=== PATIENT | female | born 1965 | race Caucasian/White ===

== ENCOUNTER 2016-07-20 20:28 | Emergency (ER) | payer MEDICAID ==
[~2016-07-20] VITALS: Ht 175.3 cm; Wt 95.3 kg
[2016-07-20 21:01] VITALS: BP 130/86
--- NOTE | 2016-07-21 00:27 | NUR ---
TO ER OF1
--- NOTE | 2016-07-21 00:30 | NUR ---
Patient being evaluated by physician.
[2016-07-21] MEDS ORDERED: KETOROLAC 30 MG/ML VIAL IM ONE (00:35)
[2016-07-21] MEDS ORDERED: HYDROcodone/APAP 5/325 MG 1 TAB TAB PO ONE (00:35)
[2016-07-21 01:23] LABS: BASOPHILS # (AUTO) 0.1 K/uL (0.00-0.22); BASOPHILS % (AUTO) 0.8 % (0.0-2.0); EOSINOPHILS # (AUTO) 0.4 K/uL (0-0.4); EOSINOPHILS % (AUTO) 5.6 % (0.0-4.0); HEMATOCRIT 38.8 % (36-48); HEMOGLOBIN 12.5 g/dL (12.0-16.0); LYMPHOCYTES # (AUTO) 1.7 K/uL (2.5-16.5); LYMPHOCYTES % (AUTO) 25.2 % (20.5-51.1); MEAN CORPUSCULAR HEMOGLOBIN 29 pg (27-31); MEAN CORPUSCULAR HGB CONC 32 g/dL (33-37); MEAN CORPUSCULAR VOLUME 89 fL (80-94); MONOCYTES # (AUTO) 0.5 K/uL (0.8-1.0); MONOCYTES % (AUTO) 7.6 % (1.7-9.3); NEUTROPHILS # (AUTO) 4.2 K/uL (1.8-7.7); NEUTROPHILS % (AUTO) 60.8 % (42.2-75.2); PLATELET COUNT (AUTO) 307 K/uL (140-450); RED BLOOD CELL COUNT(AUTO) 4.35 MIL/uL (4.20-5.40); RED CELL DISTRIBUTION WIDTH 12.2 % (11.6-13.7); WHITE BLOOD COUNT (AUTO) 6.9 K/uL (4.8-10.8)
[2016-07-21 01:28] LABS: ANION GAP 12.7 (8-16); CALCIUM 9.1 mg/dL (8.5-10.1); CARBON DIOXIDE 28.6 mmol/L (21-32); CREATININE 1.3 mg/dL (0.6-1.3); POTASSIUM 4.3 mmol/L (3.5-5.1)
[2016-07-21 01:40] LABS: ALBUMIN 3.5 g/dL (3.4-5.0); TOTAL BILIRUBIN 0.3 mg/dL (0.0-1.0); TOTAL PROTEIN, SERUM 8.5 g/dL (6.4-8.2)
[2016-07-21 02:36] VITALS: BP 123/71
--- NOTE | 2016-07-21 02:37 | NUR ---
Patient discharged with v/s stable. Written and verbal after care instructions given and explained. Patient alert, oriented and verbalized understanding of instructions. Ambulatory with steady gait. All questions addressed prior to discharge. ID band removed. Patient advised to follow up with PMD. Rx of [place] and Bactrim given. Patient educated on indication of medication including possible reaction and side effects. Opportunity to ask questions provided and answered.
== END 2016-07-21 02:36 | disposition home or self-care (01) ==
LOC: MED 20:28
DX: L97.521 Non-pressure chronic ulcer of other part of left foot limited to breakdown of skin (principal); Z90.49 Acquired absence of other specified parts of digestive tract; Z98.890 Other specified postprocedural states
CPT/HCPCS: 36415; 73660; 80053; 85025; 96372; 99285; J1885

== ENCOUNTER 2016-12-05 09:54 | Emergency (ER) | payer MEDICAID ==
[~2016-12-05] VITALS: Ht 175.3 cm; Wt 93.6 kg
[2016-12-05 10:22] VITALS: BP 128/74
--- NOTE | 2016-12-05 10:53 | NUR ---
LOW BACK AND LEFT HIP PAIN 8/10X1WK, HEADACHE 8/10 WITH NAUSEA X2D.51/F BIB FRIEND C/O LOW BACK AND LEFT HIP PAIN 8/10X1WK, HEADACHE 8/10 WITH NAUSEA X2D AAOX4 WITH EVEN AND STEADY GAIT; LUNGS CLEAR BL; HR EVEN AND REGULAR; PATIENT POSITIONED FOR COMFORT; HOB ELEVATED; BEDRAILS UP X2; BED DOWN. ER MD MADE AWARE OF PT STATUS.
--- NOTE | 2016-12-05 11:04 | NUR ---
Patient being evaluated by DR MAGALLANES at bedside.
[2016-12-05] MEDS ORDERED: KETOROLAC 60 MG/2 ML VIAL IM ONE (11:15)
[2016-12-05] MEDS ORDERED: METOCLOPRAMIDE 10 MG/2 ML INJ VIAL IM ONE (11:15)
--- NOTE | 2016-12-05 12:10 | NUR ---
Patient appears to be resting comfortably in bed. Vital Signs within normal limits. Respirations even and unlabored.WILL CONTINUE TO MONITOR.
[2016-12-05 12:20] VITALS: BP 110/70
--- NOTE | 2016-12-05 12:20 | NUR ---
PATIENT ELOPED FROM FACILITY. DISCHARGE INSTRUCTIONS NOT GIVEN TO PATIENT. DR. MAGALLANES NOTIFIED.
== END 2016-12-05 12:20 | disposition left against medical advice (07) ==
LOC: MED 09:54
DX: M54.5 Low back pain (principal); G43.909 Migraine, unspecified, not intractable, without status migrainosus; R11.0 Nausea; E11.9 Type 2 diabetes mellitus without complications; I10 Essential (primary) hypertension; F32.9 Major depressive disorder, single episode, unspecified; F41.9 Anxiety disorder, unspecified
CPT/HCPCS: 96372; 99284; J1885; J2765